=== PATIENT | male | born 1960 | race Caucasian/White ===

== ENCOUNTER → 2017-10-20 | Outpatient (CLI) | payer OTHER ==
[~2017-10-20] MED LIST: ALOE1CAP PO; ENTO3CAP5 PO; GLUC500T4 PO; INOS500T PO; IODIXANOL 320 MG/ML 10 ML VIAL (for Rad CT) IVCONTRAST ONE; LACTCAP8 PO; MACA500C2 PO; MILK200C2 PO; OMEG100010 PO; OXYC-432 PO; VITATAB11
--- NOTE | 2017-10-20 16:29 | RADRPT ---
EXAM DATE/TIME: 10/20/2017 14:15 [facility] COMPARISON: No previous studies available for comparison. INDICATIONS : Hematuria. IV CONTRAST: 50 cc Visipaque (iodixanol) IV ORAL CONTRAST: No oral contrast ingested. RADIATION DOSE: 9.96 CTDIvol (mGy) MEDICAL HISTORY : Renal calculi. Crohns disease. SURGICAL HISTORY : Colon resection. kidney surgery ENCOUNTER: Initial ACUITY: 1 day PAIN SCALE: 0/10 LOCATION: Bilateral abdomen TECHNIQUE: Volumetric scanning of the abdomen and pelvis was performed. Using automated exposure control and ad justment of the mA and/or kV according to patient size, radiation dose was kept as low as reasonably achievable to obtain optimal diagnostic quality images. DICOM format image data is available electro nically for review and comparison. FINDINGS: LOWER LUNGS: The visualized lower lungs are clear. LIVER: Homogeneous density without lesion. There is no dilation of the biliary tree. No calcified gallston es. SPLEEN: Normal size without lesion. PANCREAS: Within normal limits. : KIDNEYS: 3 mm stone upper pole right kidney 1.4 cm stone in the lower pole right kidney with 2 smaller adjacen t calcifications. No calcifications on the left ADRENAL GLANDS: Within normal limits. VASCULAR: There is no aortic aneurysm. BOWEL/MESENTERY: Moderate stool throughout the colon. ABDOMINAL WALL: Within normal limits. RETROPERITONEUM: There is no lymphadenopathy. BLADDER: No wall thickening or mass. REPRODUCTIVE: Within normal limits. INGUINAL: There is no lymphadenopathy or hernia. MUSCULOSKELETAL: Within normal limits for patient age. POST CONTRAST: No abnormal areas of enhancement are seen. CONCLUSION: 1. Renal stones on the right, largest lower pole containing at least 3 fragments. 2. Significant stool throughout the colon Jayden Pitts MD FACR on October 20, 2017 at 16:24 Board Certified Radiologist. This report was verified electronically.
== END ==
LOC: HRAD 13:12
PROVIDERS: ATTEND Urology
DX: R31.0 Gross hematuria (principal)
CPT/HCPCS: 74178; Q9967

== ENCOUNTER → 2017-12-10 | Day surgery (SDC) | payer OTHER ==
[~2017-12-10] VITALS: Ht 180.3 cm; Wt 63.5 kg
[~2017-12-10] MED LIST changes: +*morphine SULFATE 10 MG/ML PERIprocedure ONLY ONE; +CHLORHEXIDINE GLUCONATE 2 % 1 PACK (2 CLOTHS) TOPICAL PRN; +DO NOT ADM ANY ANTICOAGULANT DRUGS PRN; -IODIXANOL 320 MG/ML 10 ML VIAL (for Rad CT) IVCONTRAST ONE; +KETOROLAC TROMETHAMINE 30 MG/ML (IVP) VIAL IV PUSH ONE; +LACTATED RINGER'S 1000 ML IV PRN; +METOPROLOL TARTRATE 25 MG TAB PO PRN; +MILK140C2 PO; +MORPHINE SULFATE 2 MG/ML INJ IV PRN; +ONDANSETRON HCL 4 MG/2 ML VIAL IV PUSH ONE; +ONDANSETRON HCL 4 MG/2 ML VIAL IV PUSH PRN; +POVIDONE IODINE 5% (ANTISEPSIS KIT) 4 APPLICATIONS EACH NARE PRN; +PROPOFOL 200 MG/20 ML AMP IV ONE; +SODIUM CHLORID 0.9% 500 ML IV PRN; +ceFAZolin 1,000 MG/NS 100 ML IV SCH; +oxyCODONE/ACETAMINOPHEN 10 MG/325 MG TAB ONE; +oxyCODONE/ACETAMINOPHEN 10 MG/325 MG TAB PO PRN
--- NOTE | 2017-12-10 06:56 | RADRPT ---
EXAM DATE/TIME: 12/10/2017 06:32 [facility] COMPARISON: CT ABDOMEN & PELVIS W & W/O CONTRAST, October 20, 2017, 14:15. ABDOMEN KUB ONLY, October 07, 2014, 8:27. INDICATIONS : Pre OP lithotripsy. MEDICAL HISTORY : None. SURGICAL HISTORY : None. ENCOUNTER: Initial ACUITY: 1 day PAIN SCORE: 0/10 LOCATION: Bilateral chest FINDINGS: Supine view of the abdomen was performed. There is a lobulated area of calcification measuring 1.9 c m projecting over the mid right kidney. There also appears to be an area of smaller calcification pro jecting over the upper right kidney. Left renal stones are not seen. The abdominal bowel gas pattern is normal. The urinary bladder is moderately distended. The osseous structures are unremarkable. CONCLUSION: Right renal stones. Vic Knutson MD on December 10, 2017 at 6:52 Board Certified Radiologist. This report was verified electronically.
[2017-12-10 07:33] LABS: AUTOMATED NEUTROPHIL # 4.5 TH/MM3 (1.8-7.7); BASOPHIL % 0.5 % (0.0-2.0); EOSINOPHIL # 0.2 TH/MM3 (0-0.4); EOSINOPHIL % 3.3 % (0.0-4.0); HEMOGLOBIN 12.3 GM/DL (13.0-17.0); LYMPH % 12.6 % (9.0-44.0); LYMPHOCYTE # 0.8 TH/MM3 (1.0-4.8); MEAN CELL VOLUME 98.8 FL (80.0-100.0); MEAN CORPUSCULAR HEMOGLOBIN 32.9 PG (27.0-34.0); MEAN CORPUSCULAR HGB CONC 33.3 % (32.0-36.0); MEAN PLATELET VOLUME 7.8 FL (7.0-11.0); MONO % 10.9 % (0.0-8.0); MONOCYTE # 0.7 TH/MM3 (0-0.9); NEUT % 72.7 % (16.0-70.0); PLATELET COUNT 156 TH/MM3 (150-450); RED BLOOD COUNT 3.74 MIL/MM3 (4.50-5.90); RED CELL DISTRIBUTION WIDTH 13.9 % (11.6-17.2); WHITE BLOOD COUNT 6.2 TH/MM3 (4.0-11.0)
--- NOTE | 2017-12-10 10:23 | PD.OP ---
Operative Report Date of Surgery: Dec 10, 2017 Preoperative Diagnosis: Right Renal Calculi Postoperative Diagnosis: Same Procedure: Right Extracoporeal Shock Wave Lithotripsy Anesthesia: MAC Surgeon: Salomón Gomez Slot Technician(s): None Resident Surgeon: None Operation and Findings: 57 year-old male presents with findings of a 2 cm right renal calculus. Patient elected to undergo right extracorporeal shockwave lithotripsy. Risk and benefits were discussed preoperatively he is willing to proceed. Patient was brought to the operating room and identified by myself as Sampson Levine. He is placed on the operating table in the supine position. He received preprocedure antibiotics and MAC anesthesia was administered. Under fluoroscopic imaging guidance the stone was then visualized and ESWL therapy commenced. Patient received a total of 2500 shocks with partial fragmentation of the stone visualized under fluoroscopy. He was awoken and transferred Jose Luis stable condition. He will follow-up in the office in 2 weeks and obtain a KUB x-ray prior. Salomón Gomez DO Dec 10, 2017 10:23
[2017-12-10 11:40] VITALS: BP 123/71; PULSE 52; RESP 18; TEMP 98.4; O2SAT 98
--- NOTE | 2017-12-10 12:55 | EKG ---
Date Performed: 12/10/2017 Time Performed: 06:44:31 PTAGE: 57 years EKG: SINUS BRADYCARDIA BORDERLINE ECG PREVIOUS TRACING : 02/26/2016 13.13 DOCTOR: Charlie Wilson Interpretating Date/Time 12/10/2017 12:53:49
== END | disposition home or self-care (01) ==
LOC: HSDC 06:02
PROVIDERS: ATTEND Urology
DX: N20.0 Calculus of kidney (principal)
CPT/HCPCS: 00873; 50590; 74018; 85025; 93005; J0690; J1885; J2270; J2405; J3010; J7120

== ENCOUNTER → 2018-01-08 | Outpatient (CLI) | payer OTHER ==
[~2018-01-08] MED LIST changes: -*morphine SULFATE 10 MG/ML PERIprocedure ONLY ONE; -CHLORHEXIDINE GLUCONATE 2 % 1 PACK (2 CLOTHS) TOPICAL PRN; -DO NOT ADM ANY ANTICOAGULANT DRUGS PRN; -ENTO3CAP5 PO; -GLUC500T4 PO; -KETOROLAC TROMETHAMINE 30 MG/ML (IVP) VIAL IV PUSH ONE; -LACTATED RINGER'S 1000 ML IV PRN; -METOPROLOL TARTRATE 25 MG TAB PO PRN; -MILK200C2 PO; -MORPHINE SULFATE 2 MG/ML INJ IV PRN; -ONDANSETRON HCL 4 MG/2 ML VIAL IV PUSH ONE; -ONDANSETRON HCL 4 MG/2 ML VIAL IV PUSH PRN; -POVIDONE IODINE 5% (ANTISEPSIS KIT) 4 APPLICATIONS EACH NARE PRN; -PROPOFOL 200 MG/20 ML AMP IV ONE; -SODIUM CHLORID 0.9% 500 ML IV PRN; -ceFAZolin 1,000 MG/NS 100 ML IV SCH; -oxyCODONE/ACETAMINOPHEN 10 MG/325 MG TAB ONE; -oxyCODONE/ACETAMINOPHEN 10 MG/325 MG TAB PO PRN
--- NOTE | 2018-01-08 16:58 | RADRPT ---
EXAM DATE/TIME: 01/08/2018 13:51 [facility] COMPARISON: CT ABDOMEN & PELVIS W & W/O CONTRAST, October 20, 2017, 14:15. ABDOMEN KUB ONLY, December 10, 2017, 6:32. INDICATIONS : Follow up left side kidney stone post lithotripsy. MEDICAL HISTORY : Renal calculi. Crohns disease. SURGICAL HISTORY : Colon resection. kidney surgery ENCOUNTER: Initial ACUITY: 2 weeks PAIN SCORE: 3/10 LOCATION: Left upper quadrant abdomen FINDINGS: Examination is somewhat limited by large amount of stool throughout colon. Previously noted grouping of densely calcified calculi in the inferior pole of the right kidney that appear more fragmented and smaller in size measuring 2 mm, 9 mm and 7 mm respectively. Additional nearly punctate smaller calcu li in the superior pole are not well demonstrated on today's exam. No additional radiopaque renal sesar culi. Remainder of exam is unchanged. CONCLUSION: 1. Smaller and less well-defined calculi in the inferior pole of the right kidney status post lithotr ipsy, as above. Ketan Silva MD on January 08, 2018 at 16:54 Board Certified Radiologist. This report was verified electronically.
== END ==
LOC: HRAD 13:37
PROVIDERS: ATTEND Urology
DX: N20.0 Calculus of kidney (principal)
CPT/HCPCS: 74018